=== PATIENT | female | born 1995 | race Caucasian/White ===

== ENCOUNTER 2022-12-06 08:04 | Emergency (ER) | payer OTHER, SELFPAY ==
[2022-12-06 08:16] VITALS: BP 116/73; PULSE 87; RESP 18; TEMP 36.5; O2SAT 99
--- NOTE | 2022-12-06 08:28 | ED.URI ---
HPI - URI/Sore Throat General Chief Complaint: Upper Respiratory Infection Stated Complaint: sorethroat Time Seen by Provider: 12/06/22 08:20 Source: patient Mode of arrival: ambulatory Limitations: no limitations History of Present Illness HPI Narrative: Patient presents today complaining of sore throat and fever up to 102 since last night. She currently rates her pain 7/10 and has tried no magv-[id number]-[id number] medication prior to arrival. 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 Related Data Allergies Allergy/AdvReac Type Severity Reaction Status Date / Time No Known Allergies Allergy Verified 12/06/22 08:09 Review of Systems Review of Systems: CONSTITUTIONAL: Denies body aches, chills, or sweats.+ fever EYES: Denies visual changes, redness, or discharge. ENT: Denies rhinorrhea, congestion, or otalgia.+ his sore throat CARDIOVASCULAR: Denies chest pain, palpitations, or edema. RESPIRATORY: Denies cough or dyspnea. GASTROINTESTINAL: Denies abdominal pain, nausea, vomiting, or diarrhea. GENITOURINARY: Denies dysuria or hematuria. SKIN: Denies rash, itching, or wounds. MUSCULOSKELETAL: Denies back pain, joint pain, or myalgia. NEUROLOGIC: Denies headache, numbness, tingling, or weakness. PSYCH: Denies depression or anxiety. PMFSH Past Medical History Medical History Allergies Surgical History Surgical History History of 2 sections 2015 2017 Family History Family History Father Family history of diabetes mellitus in first degree relative Mother Thyroid disorder Social History Social History Smoking status: Never smoker Alcohol intake: never Substance use: never Comments At time of signature, I have reviewed and agree with nursing past medical, surgical, social and family history unless otherwise noted. Please see nursing chart for further information. There is no relevant family history pertinent to the presenting complaint Exam Narrative: GENERAL: Well-appearing, well-nourished, and in no acute distress. HEAD: Normocephalic, atraumatic. EYES: EOMI. No redness or drainage. Conjunctivae normal. ENT: Mucous membranes pink and moist. Nares clear. No rhinorrhea. TMs normal bilaterally. Throat erythematous and edematous. Tonsils 3+ with white exudate. Uvula midline. NECK: Normal AROM. Supple. No lymphadenopathy. CHEST: No respiratory distress. Clear to auscultation. HEART: Regular rate and rhythm. No murmur appreciated. Normal peripheral pulses. EXTREMITIES: Normal range of motion. No edema. SKIN: Warm, dry, no rash. Capillary refill normal. Normal skin turgor. NEURO: No focal deficits. Alert and oriented x3. Gait steady. PSYCH: Normal affect. No signs of depression or anxiety. Course Course Level of Care: Express Care Visit Vital Signs Vital signs: Vital Signs Temperature 97.7 F 12/06/22 08:16 Pulse Rate 87 12/06/22 08:16 Respiratory Rate 18 12/06/22 08:16 Blood Pressure 116/73 12/06/22 08:16 Pulse Oximetry 99 12/06/22 08:16 Oxygen Delivery Room Air 12/06/22 08:16 Temperature 97.7 F 12/06/22 08:16 Pulse Rate 87 12/06/22 08:16 Respiratory Rate 18 12/06/22 08:16 Blood Pressure 116/73 12/06/22 08:16 Pulse Oximetry 99 12/06/22 08:16 Oxygen Delivery Room Air 12/06/22 08:16 Reviewed MDM - URI/Sore Throat MDM Narrative Medical decision making narrative: Rapid strep positive. Prescription for amoxicillin will be sent to pharmacy. Anticipatory guidance given. Differential Diagnosis Differential diagnosis: Likely upper respiratory infection, viral infection, pharyngitis and other (Strep throat) Lab Data Attestation: I reviewed the patient's lab results. Labs
== END 2022-12-06 08:33 | disposition home or self-care (01) ==
PROVIDERS: Emergency Provider Nurse Practitioner
DX: J02.0 Streptococcal pharyngitis (principal)
CPT/HCPCS: 87880; 99213; G0463

== ENCOUNTER 2023-06-08 08:05 | Emergency (ER) | payer OTHER, SELFPAY ==
[2023-06-08 08:17] VITALS: BP 115/71; PULSE 88; RESP 16; TEMP 36.7; O2SAT 99
--- NOTE | 2023-06-08 08:34 | ED.URI ---
HPI - URI/Sore Throat General Chief Complaint: Upper Respiratory Infection Stated Complaint: Cough,Sore Throat,Runny Nose Source: patient and family Mode of arrival: ambulatory Limitations: no limitations History of Present Illness HPI Narrative: 28-year-old female presents to [facility] with complaints of cough, runny nose, nasal congestion, body aches and sore throat for the past 2 days. Patient takes Claritin daily for seasonal allergies. Patient also has been taking [id number] cold and flu medication with little relief. Patient denies fever, nausea, vomiting diarrhea or chills. Patient reports that she was exposed to strep throat yesterday. MD elicited complaint: cough, sore throat, rhinorrhea and nasal congestion Onset (ago): day(s) (2) Able to tolerate fluids by mouth: Yes Exacerbating factors: nothing Relieving factors: nothing Treatments prior to arrival: cold medicine Related Data Home Medications Medication Instructions Recorded Confirmed loratadine 10 mg tablet 10 mg PO DAILY 06/08/23 06/08/23 Allergies Allergy/AdvReac Type Severity Reaction Status Date / Time No Known Allergies Allergy Verified 06/08/23 08:12 Review of Systems Constitutional: Constitutional: Denies chills, Denies fatigue, Denies fever(s) and Denies weakness ENT: Denies dizziness, Denies epistaxis, Reports nasal congestion and Reports sore throat Gastrointestinal: Gastrointestinal: Denies abdominal pain, Denies diarrhea, Denies nausea and Denies vomiting Integumentary/Breasts: Skin/Breast: Denies rash Neurologic: Denies dizziness, Denies syncope and Denies headache(s) Allergic/Immunologic: Allergic/Immunologic: Denies lip swelling, Denies throat swelling, Denies tongue swelling and Denies wheezing PMFSH Past Medical History Medical History Allergies Surgical History Surgical History History of 2 sections 2015 2017 Family History Family History Father Family history of diabetes mellitus in first degree relative Mother Thyroid disorder Social History Social History Smoking status: Never smoker Alcohol intake: never Substance use: never Comments At time of signature, I agree with nursing past medical, surgical, social and family history. There is no relevant family history pertinent to the presenting complaint. Exam Const: General: healthy appearing and no acute distress Nutritional Appearance: well nourished Orientation/consciousness: patient oriented x3 Limitations: no limitations HENMT: Head: normal to inspection Ears: external ears normal, TM's normal bilaterally and EAC's normal Face and sinus: normal facial exam and sinuses nontender Mouth: Yes Normal oral and palatal mucosa present and Yes moist mucous membranes Teeth and gingiva: dentition normal Throat: posterior oropharynx normal and uvula midline Eyes: Conjunctivae: conjunctivae normal Neck: Neck: normal visual inspection Resp: Effort & Inspection: normal respiratory effort, not labored and not tachypneic Auscultation: clear to auscultation bilaterally, no crackles, no rales, no rhonchi and no wheezes Cardio: Rate: regular rate Rhythm: regular rhythm Heart sounds: no murmurs Skin: General skin exam: normal color Rashes: no rashes Wounds: no wounds Neuro: General: patient oriented x3 Speech: normal speech Gait exam (Neuro): Normal gait present Psych: Affect: normal affect Attitude: cooperative Course Course Level of Care: Express Care Visit Vital Signs Vital signs: Vital Signs Temperature 36.7 C 06/08/23 08:17 Pulse Rate 88 06/08/23 08:17 Respiratory Rate 16 06/08/23 08:17 Blood Pressure 115/71 06/08/23 08:17 Pulse Oximetry 99 06/08/23 08:17 Oxygen Delivery Room Air
== END 2023-06-08 08:40 | disposition home or self-care (01) ==
PROVIDERS: Emergency Provider Nurse Practitioner Family
DX: B34.9 Viral infection, unspecified (principal)
CPT/HCPCS: 87081; 87880; 99213; G0463

== ENCOUNTER 2023-11-28 16:03 | Emergency (ER) | payer OTHER, SELFPAY ==
[2023-11-28 16:11] VITALS: BP 124/79; PULSE 84; RESP 18; TEMP 36.8; O2SAT 99
--- NOTE | 2023-11-28 16:12 | ED.URI ---
HPI - URI/Sore Throat General Chief Complaint: Upper Respiratory Infection Stated Complaint: cough,congestion Time Seen by Provider: 11/28/23 16:12 Source: patient, RN notes reviewed and old records reviewed Mode of arrival: ambulatory Limitations: no limitations History of Present Illness HPI Narrative: 28-year-old female presents to the [facility] with complaints of 1 week of cough, congestion, runny nose. States she has tried [id number] products but a meter stomach upset so she stopped Denies fevers, chest pain, abdominal pain Related Data Allergies Allergy/AdvReac Type Severity Reaction Status Date / Time No Known Allergies Allergy Verified 11/28/23 16:13 Review of Systems Review of Systems: All systems reviewed & are unremarkable except as noted in HPI and below Constitutional: Constitutional: Reports no additional constitutional complaints Eyes: Eyes: Reports no additional eye complaints ENT: Reports as per HPI Cardiovascular: Cardiovascular: Reports no additional cardiovascular complaints, Denies chest pain and Denies dyspnea Respiratory: Respiratory: Reports as per HPI, Denies chest congestion, Reports cough and Denies dyspnea Gastrointestinal: Gastrointestinal: Reports no additional gastrointestinal complaints, Denies abdominal pain, Denies nausea and Denies vomiting Musculoskeletal: Musculoskeletal: Reports no additional musculoskeletal complaints Integumentary/Breasts: Skin/Breast: Reports system reviewed and no additional complaints, except as docu Neurologic: Reports system reviewed and no additional complaints, except as documented Psychiatric: Psychiatric: Reports no additional psychiatric complaints Allergic/Immunologic: Allergic/Immunologic: Reports no additional allergic/immunologic complaints [facility] Past Medical History Medical History Allergies Surgical History Surgical History History of 2 sections 2015 2017 Family History Family History Father Family history of diabetes mellitus in first degree relative Mother Thyroid disorder Social History Social History Smoking status: Never smoker Alcohol intake: never Substance use: never Comments At the time of my signature, I reviewed and agree with the nursing past medical, surgical, social, and family history. There is no relevant family history pertinent to the patient complaint. Exam Const: General: cooperative, healthy appearing, comfortable, no acute distress, well developed, alert and well nourished Nutritional Appearance: well nourished Orientation/consciousness: patient oriented x3 Limitations: no limitations HENMT: Head: normal to inspection Ears: hearing grossly normal bilaterally, external ears normal, TM's normal bilaterally, EAC's normal, mastoids normal and no periauricular adenopathy Face/Nose/Sinus: Normal external nose present, Normal nares present, Normal nasal mucous membranes and turbinates present, normal facial exam and face symmetric Face and sinus: normal facial exam and face symmetric Mouth: Yes Normal oral and palatal mucosa present, Yes lip normal and Yes moist mucous membranes Throat: posterior oropharynx normal, uvula midline and postnasal drainage (Thick white large amount) Eyes: General: appearance normal, both eyes and all related structures Alignment and Position: alignment normal Periorbital: periorbital findings normal Pupils: Equal, round and reactive pupils present EOM: EOMs intact bilaterally Neck: Neck: normal visual inspection, full ROM, no lymphadenopathy and no meningeal signs Chest: Chest palpation & inspection: normal inspection of the chest Resp: Effort & Inspection: normal respiratory effort and able to speak in complete sentences Auscultation:
[2023-11-28 16:14] VITALS: BP 124/79; PULSE 84; RESP 18; TEMP 36.8; O2SAT 99
== END 2023-11-28 16:23 | disposition home or self-care (01) ==
PROVIDERS: Emergency Provider Nurse Practitioner
DX: J40 Bronchitis, not specified as acute or chronic (principal); R09.82 Postnasal drip
CPT/HCPCS: 99213; G0463

== ENCOUNTER 2023-12-08 15:42 | Emergency (ER) | payer OTHER, SELFPAY ==
[2023-12-08 16:28] VITALS: BP 122/80; PULSE 81; RESP 18; TEMP 36.4; O2SAT 100
--- NOTE | 2023-12-08 16:47 | ED.GENADULT ---
HPI - General Adult General Chief complaint: Upper Respiratory Infection Stated complaint: cough,bilateral ear pain Time Seen by Provider: 12/08/23 16:50 Source: patient, RN notes reviewed and old records reviewed Mode of arrival: ambulatory Limitations: no limitations History of Present Illness HPI narrative: 28-year-old female presents to the [facility] with complaints of cough, bilateral ear pain Patient states her cough never went away after she was seen on the 28 of November. Symptoms now going on approximately 2 weeks Ear pain started yesterday States the last time she used her inhaler was 2 days a Reports that she did feel dish the full round of steroids but it did not make her better Has not taken any [id number] products to help her symptoms Has not followed up with primary care provider Onset (ago): week(s) (2) Related Data Allergies Allergy/AdvReac Type Severity Reaction Status Date / Time No Known Allergies Allergy Verified 12/08/23 16:30 Review of Systems Review of Systems: All systems reviewed & are unremarkable except as noted in HPI and below Constitutional: Constitutional: Reports no additional constitutional complaints Eyes: Eyes: Reports no additional eye complaints ENT: Reports as per HPI and Reports otalgia Cardiovascular: Cardiovascular: Reports no additional cardiovascular complaints, Denies chest pain and Denies dyspnea Respiratory: Respiratory: Reports as per HPI, Denies chest congestion, Denies cough and Denies dyspnea Gastrointestinal: Gastrointestinal: Reports no additional gastrointestinal complaints, Denies abdominal pain, Denies nausea and Denies vomiting Musculoskeletal: Musculoskeletal: Reports no additional musculoskeletal complaints Integumentary/Breasts: Skin/Breast: Reports system reviewed and no additional complaints, except as docu Neurologic: Reports system reviewed and no additional complaints, except as documented Psychiatric: Psychiatric: Reports no additional psychiatric complaints Allergic/Immunologic: Allergic/Immunologic: Reports no additional allergic/immunologic complaints [facility] Past Medical History Medical History Allergies Surgical History Surgical History History of 2 sections 2015 2017 Family History Family History Father Family history of diabetes mellitus in first degree relative Mother Thyroid disorder Social History Social History Smoking status: Never smoker Alcohol intake: never Substance use: never Comments At the time of my signature, I reviewed and agree with the nursing past medical, surgical, social, and family history. There is no relevant family history pertinent to the patient complaint. Exam Const: General: cooperative, healthy appearing, comfortable, no acute distress, well developed, alert and well nourished Nutritional Appearance: well nourished and obese Orientation/consciousness: patient oriented x3 Limitations: no limitations HENMT: Head: normal to inspection Ears: hearing grossly normal bilaterally, external ears normal, EAC's normal and TM abnormal wth effusion serous bilateral; not erythematous and with no loss of landmarks Face/Nose/Sinus: Normal external nose present, Normal nares present, Normal nasal mucous membranes and turbinates present, normal facial exam and face symmetric Face and sinus: normal facial exam and face symmetric Mouth: Yes Normal oral and palatal mucosa present, Yes lip normal and Yes moist mucous membranes Throat: posterior oropharynx normal, tonsils normal, uvula midline and postnasal drainage Eyes: General: appearance normal, both eyes and all related structures Alignment and Position: alignment normal Periorbital: periorbital findings normal Pupils:
== END 2023-12-08 17:05 | disposition home or self-care (01) ==
PROVIDERS: Emergency Provider Nurse Practitioner
DX: H65.03 Acute serous otitis media, bilateral (principal); J20.9 Acute bronchitis, unspecified
CPT/HCPCS: 99213; G0463

== ENCOUNTER 2024-08-08 08:03 | Emergency (ER) | payer OTHER, SELFPAY ==
[2024-08-08 08:29] VITALS: BP 106/69; PULSE 80; RESP 18; TEMP 36.4; O2SAT 99
[2024-08-08 08:30] VITALS: BP 106/69; PULSE 80; RESP 18; TEMP 36.4; O2SAT 99
--- NOTE | 2024-08-08 08:40 | ED.URI ---
HPI - URI/Sore Throat General Chief Complaint: Upper Respiratory Infection Stated Complaint: cough / Ear Pain Time Seen by Provider: 08/08/24 08:36 Source: patient and RN notes reviewed Mode of arrival: ambulatory Limitations: no limitations History of Present Illness HPI Narrative: Patient presents today with a 4 day history of sore throat, cough, congestion, bilateral ear pain. Denies fever, shortness of breath, or any additional symptoms. She currently rates her pain 6/10 and has tried Mucinex without relief. No history of asthma or COPD. She is a nonsmoker. Related Data Home Medications Medication Instructions Recorded Confirmed No Home Medications 08/08/24 08/08/24 Allergies Allergy/AdvReac Type Severity Reaction Status Date / Time No Known Allergies Allergy Verified 08/08/24 08:30 Review of Systems Review of Systems: CONSTITUTIONAL: Denies body aches, fever, chills, or sweats. EYES: Denies visual changes, redness, or discharge. ENT: Denies rhinorrhea. + congestion sore pain, bilateral ear pain CARDIOVASCULAR: Denies chest pain, palpitations, or edema. RESPIRATORY: Denies dyspnea.+ cough GASTROINTESTINAL: Denies abdominal pain, nausea, vomiting, or diarrhea. GENITOURINARY: Denies dysuria or hematuria. SKIN: Denies rash, itching, or wounds. MUSCULOSKELETAL: Denies back pain, joint pain, or myalgia. NEUROLOGIC: Denies headache, numbness, tingling, or weakness. PSYCH: Denies depression or anxiety. [facility] Past Medical History Medical History Allergies Surgical History Surgical History History of 2 sections 2016 2017 Family History Family History Father Family history of diabetes mellitus in first degree relative Mother Thyroid disorder Social History Social History Smoking status: Never smoker Alcohol intake: never Substance use: never Comments At time of signature, I have reviewed and agree with nursing past medical, surgical, social and family history unless otherwise noted. Please see nursing chart for further information. There is no relevant family history pertinent to the presenting complaint Exam Narrative: GENERAL: Well-appearing, well-nourished, and in no acute distress. HEAD: Normocephalic, atraumatic. EYES: EOMI. No redness or drainage. Conjunctivae normal. ENT: Mucous membranes pink and moist. Nares congested. No rhinorrhea. TMs normal bilaterally. Throat mildly erythematous without edema or exudate. Uvula midline. NECK: Normal AROM. Supple. No lymphadenopathy. CHEST: No respiratory distress. Clear to auscultation. HEART: Regular rate and rhythm. No murmur appreciated. EXTREMITIES: Normal range of motion. No edema. SKIN: Warm, dry, no rash. Capillary refill normal. Normal skin turgor. NEURO: No focal deficits. Alert and oriented x3. Gait steady. PSYCH: Normal affect. No signs of depression or anxiety. Course Course Level of Care: Express Care Visit Vital Signs Vital signs: Vital Signs Temperature 97.5 F L 08/08/24 08:29 Pulse Rate 80 08/08/24 08:29 Respiratory Rate 18 08/08/24 08:29 Blood Pressure 106/69 08/08/24 08:29 Pulse Oximetry 99 08/08/24 08:29 Oxygen Delivery Room Air 08/08/24 08:29 Temperature 97.5 F L 08/08/24 08:30 Pulse Rate 80 08/08/24 08:30 Respiratory Rate 18 08/08/24 08:30 Blood Pressure 106/69 08/08/24 08:30 Pulse Oximetry 99 08/08/24 08:30 Oxygen Delivery Room Air 08/08/24 08:30 Reviewed MDM - URI/Sore Throat MDM Narrative Medical decision making narrative: Influenza, COVID, and strep throat negative. Strep culture pending. Symptoms likely viral in etiology. Discussed [id number] medication use and duration of illness. Patient declines prescription cough medicine. Anticipatory guidance given. ED precautions given. Differential Diagnosis Differential diagnosis: Likely upper respiratory infection, otitis media, viral infection, bronchitis, influenza, pharyngitis and other (COVID-19, strep throat) Lab Data Attestation: I reviewed the patient's lab results. Labs: Lab Results 08/08/24 Range/Units 08:54 POC Influenza A Ag Negative (Negative) POC Influenza B Ag Negative (Negative) POC SARS CoV-2 Ag Negative (Negative) POC Grp A Strep Screen Negative (Negative) Critical Care Time Critical Care Time Critical Care Time: No Discharge Plan Discharge Clinical Impression: Upper respiratory infection Qualifiers: URI type: unspecified URI Qualified Code(s): J06.9 - Acute upper respiratory infection, unspecified Patient Disposition: Home, Self-Care Condition: Stable Instructions: Upper Respiratory Infection (DC) Additional Instructions: Your COVID-19, influenza, and rapid strep swabs were negative today at [facility]. You will be notified in a few days if the culture comes back positive for strep, and appropriate antibiotics will be called in for you at that time. Your symptoms are likely due to a viral illness, which is not treated with antibiotics. Viral symptoms can be present for up to 7-10 days. Take Tylenol or ibuprofen for fever or pain. Continue Mucinex during the day to help break up any chest congestion. Take a cough suppressant at night such as Delsym or Robitussin DM if needed. Rest and stay hydrated. Follow up with your PCP in 7 days if symptoms are not improving. Go to the ER immediately if you have any difficulty breathing or swallowing. Prescriptions: No Action No Home Medications Follow-up/Referrals: PHYSICIAN,PARKING ENFORCEMENT SPECIALIST [Primary Care Provider] - Time of Disposition: 08:58
[2024-08-08 08:56] LABS: EDCOVIDSCREEN Negative (Negative); EDINFLUASCREEN Negative (Negative); EDINFLUBSCREEN Negative (Negative); EDSTREPNEGPOS1 Negative (Negative)
== END 2024-08-08 09:02 | disposition home or self-care (01) ==
PROVIDERS: Emergency Provider Nurse Practitioner
DX: J06.9 Acute upper respiratory infection, unspecified (principal); Z20.822 Contact with and (suspected) exposure to COVID-19
CPT/HCPCS: 87081; 87426; 87804; 87880; 99213; G0463

== ENCOUNTER 2024-08-13 11:00 | Emergency (ER) | payer OTHER, SELFPAY ==
--- NOTE | ~2024-08-13 | XR_ITS ---
XR chest 2V 08/13/2024 11:17 Indication: Cough and fever Procedure: 2 view chest Comparison: No prior studies for comparison. Findings: Heart size normal. Right lower lobe pneumonia. No pleural effusion, edema or pneumothorax. No acute osseous abnormality. Impression: 1: Right lower lobe pneumonia. Reviewed, dictated and finalized at location B. Impression: 1: Right lower lobe pneumonia.
--- NOTE | 2024-08-13 11:03 | ED.URI ---
HPI - URI/Sore Throat General Chief Complaint: Upper Respiratory Infection Stated Complaint: cough / fever / chest pain Time Seen by Provider: 08/13/24 11:08 Source: patient, RN notes reviewed and old records reviewed Mode of arrival: ambulatory Limitations: no limitations History of Present Illness HPI Narrative: 29-year-old female return [facility] the [facility] after being evaluated on Friday, 5 days ago. Diagnosed with a viral infection. At that time she was flu, strep and COVID negative Patient reports over the last couple of days or symptoms go hours. Related Data Home Medications Medication Instructions Recorded Confirmed norethindrone acetate 1 mg-ethinyl 1 tablet PO DAILY 08/13/24 08/13/24 estradiol 20 mcg tablet Allergies Allergy/AdvReac Type Severity Reaction Status Date / Time No Known Allergies Allergy Verified 08/13/24 11:05 Review of Systems Review of Systems: All systems reviewed & are unremarkable except as noted in HPI and below Constitutional: Constitutional: Reports as per HPI and Reports fever(s) Eyes: Eyes: Reports no additional eye complaints ENT: Reports as per HPI Cardiovascular: Cardiovascular: Reports no additional cardiovascular complaints, Denies chest pain and Denies dyspnea Respiratory: Respiratory: Reports as per HPI, Denies chest congestion, Reports cough and Reports dyspnea Gastrointestinal: Gastrointestinal: Reports no additional gastrointestinal complaints, Denies abdominal pain, Denies nausea and Denies vomiting Musculoskeletal: Musculoskeletal: Reports no additional musculoskeletal complaints Integumentary/Breasts: Skin/Breast: Reports system reviewed and no additional complaints, except as docu Neurologic: Reports system reviewed and no additional complaints, except as documented Psychiatric: Psychiatric: Reports no additional psychiatric complaints Allergic/Immunologic: Allergic/Immunologic: Reports no additional allergic/immunologic complaints [facility] Past Medical History Medical History Allergies Surgical History Surgical History History of 2 sections 2015 2017 Family History Family History Father Family history of diabetes mellitus in first degree relative Mother Thyroid disorder Social History Social History Smoking status: Never smoker Alcohol intake: never Substance use: never Comments At the time of my signature, I reviewed and agree with the nursing past medical, surgical, social, and family history. There is no relevant family history pertinent to the patient complaint. Exam Const: General: cooperative, healthy appearing, comfortable, no acute distress, well developed, alert and well nourished Nutritional Appearance: well nourished Orientation/consciousness: patient oriented x3 Limitations: no limitations HENMT: Head: normal to inspection Ears: hearing grossly normal bilaterally, external ears normal, TM's normal bilaterally, EAC's normal, mastoids normal and no periauricular adenopathy Face/Nose/Sinus: Normal external nose present, normal facial exam and face symmetric Face and sinus: normal facial exam and face symmetric Mouth: Yes Normal oral and palatal mucosa present, Yes lip normal and Yes tongue normal Throat: posterior oropharynx normal, tonsils normal, uvula midline and no uvular edema Eyes: General: appearance normal, both eyes and all related structures Alignment and Position: alignment normal Periorbital: periorbital findings normal Neck: Neck: normal visual inspection, full ROM, no lymphadenopathy and no meningeal signs Chest: Chest palpation & inspection: normal inspection of the chest Resp: Effort & Inspection: normal respiratory effort and able to speak in complete sentences Auscultati
[2024-08-13 11:08] VITALS: BP 123/76; PULSE 86; RESP 16; TEMP 37.1; O2SAT 96
== END 2024-08-13 11:29 | disposition home or self-care (01) ==
PROVIDERS: Emergency Provider Nurse Practitioner
DX: J18.9 Pneumonia, unspecified organism (principal)
CPT/HCPCS: 71046; 99213; G0463

== ENCOUNTER 2024-10-05 15:15 | Emergency (ER) | payer OTHER, SELFPAY ==
[2024-10-05 15:30] VITALS: BP 125/70; PULSE 93; RESP 20; TEMP 36.7; O2SAT 99
--- NOTE | 2024-10-05 15:38 | ED_ITS ---
HPI - URI/Sore Throat General Chief Complaint: Upper Respiratory Infection Stated Complaint: cough / congestion/ sore throat Time Seen by Provider: 10/05/24 15:41 Source: patient and RN notes reviewed Mode of arrival: ambulatory Limitations: no limitations History of Present Illness HPI Narrative: 29-year-old female presents concern for 3 day history of cough, nasal congestion, sore throat and postnasal drainage. Reports she start him a low- grade temperature today. She has not taken any medications for her symptoms. 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 EYES: Denies visual changes, redness, or discharge. ENT: Reports rhinorrhea, congestion, sinus pain, otalgia and sore throat. CARDIOVASCULAR: Denies chest pain, palpitations, or edema. RESPIRATORY: Reports cough. Denies dyspnea. GASTROINTESTINAL: Denies abdominal pain, nausea, vomiting, diarrhea SKIN: Denies rash or itching. MUSCULOSKELETAL: Denies myalgia. NEUROLOGIC: Denies headache. All systems reviewed & are unremarkable except as noted in HPI and below PMFSH Past Medical History Medical History Allergies Surgical History Surgical History History of 2 sections 2015 2017 Family History Family History Father Family history of diabetes mellitus in first degree relative Mother Thyroid disorder Social History Social History Smoking status: Never smoker Alcohol intake: never Substance use: never Comments At time of signature, agree with nursing past medical, surgical, social and family history. There is no relevant family history pertinent to the presenting complaint Exam Narrative: GENERAL: Well-appearing, well-nourished, and in no acute distress. HEAD: Normocephalic EYES: PERRLA, conjunctivae clear ENT: Nares clear, turbinates edematous and erythematous, clear discharge. Mucous membranes moist. TM pearly lozano with dull light reflex bilaterally; no tragal tenderness. Oropharynx not erythematous without lesions. Tonsils not enlarged and without exudate, no drooling, no hoarseness, no trismus, uvula midline. NECK: Supple. No lymphadenopathy CHEST: Clear to auscultation, breath sounds equal. No wheezing, rhonchi, rales, or stridor. No respiratory distress, speaks in full sentences. HEART: Regular rate and rhythm. No murmur heard. SKIN: Warm, dry, no rash. NEURO: Alert and oriented x3. PSYCH: Normal mood and affect Course Course Emergency Course: Patient is aware of diagnosis, understands and agrees to treatment plan. Anti cipatory guidance given. Patient agrees to follow-up as directed and is aware of reasons to seek care at the emergency department. Portions of this record may have been created with voice recognition software Level of Care: Express Care Visit Vital Signs Vital signs: Vital Signs Temperature 98.0 F 10/05/24 15:30 Pulse Rate 93 10/05/24 15:30 Respiratory Rate 20 10/05/24 15:30 Blood Pressure 125/70 10/05/24 15:30 Pulse Oximetry 99 10/05/24 15:30 Oxygen Delivery Room Air 10/05/24 15:30 Temperature 98.0 F 10/05/24 15:30 Pulse Rate 93 10/05/24 15:30 Respiratory Rate 20 10/05/24 15:30 Blood Pressure 125/70 10/05/24 15:30 Pulse Oximetry 99 10/05/24 15:30 Oxygen Delivery Room Air 10/05/24 15:30 Reviewed. MDM - URI/Sore Throat MDM Narrative Medical decision making narrative: Differential diagnosis considered: Jefferson virus, strep pharyngitis, allergic rhinitis, upper respiratory tract infection, sinusitis, rhinosinusitis, nasopharyngitis. viral pharyngitis, otitis media, otitis externa, pneumonia, bronchitis, viral cough syndrome, viral syndrome, and influenza. Exam findings show no acute concerns or changes; patient is non-toxic appearing and is in no distress. Patient is appropriate for outpatient treatment and follow-up. Lab Data Attestation: I reviewed the patient's lab results. Labs: Lab Results 10/05/24 10/05/24 10/05/24 Range/Units 15:40 15:43 15:44 POC Influenza A Ag Pending POC Influenza B Ag Negative (Negative) POC SARS CoV-2 Ag Pending POC Grp A Strep Screen Negative (Negative) Critical Care Time Critical Care Time Critical Care Time: No Discharge Plan Discharge Clinical Impression: Upper respiratory infection Patient Disposition: Home, Self-Care Condition: Stable Instructions: Upper Respiratory Infection (ED) Additional Instructions: Your rapid COVID and flu tests are negative Your rapid strep swab was negative today at [facility]. A throat culture will be sent to the laboratory for further testing. If the test is positive, you will receive a phone call within 48 hours and an appropriate antibiotic will be initiated at that time. Your symptoms are likely due to a viral illness, which is not treated with antibiotics. Viral symptoms can be present for up to a few weeks. -Alternate Tylenol and Motrin per package directions for fever or pain. -Antihistamine medication such as Benadryl at night and Zyrtec during the day can help improve symptoms. -Eat and drink things that are easy to swallow, like tea or soup, or popsicles to suck on. -Oral rinses such as: Salt water gargles and/or may use topical anesthetic (eg. Chloraseptic spray) or lozenges to relieve dryness or throat pain). -Frequent hand washing or hand credit relationship manager is one of the best ways to prevent spread of infection. -Follow up with primary care provider in 2-3 days if condition is not improving; or seek ER visit if you have trouble breathing, cannot drink enough fluids, have muffled voice, difficulty opening your mouth, or severe swelling. Patient Language: Sami Prescriptions: New pseudoephedrine HCl [12 Hour Decongestant] 120 mg tablet extended release 120 mg PO Q12H PRN (Reason: nasal congestion) Qty: 20 0RF No Action norethindrone ac-eth estradiol 1-20 mg-mcg tablet 1 tablet PO DAILY Follow-up/Referrals: PHYSICIAN,SLURRY TANK OPERATOR [Primary Care Provider] - Stand Alone Forms: Work/School Release IP Time of Disposition: 15:49
[2024-10-05 15:42] LABS: EDSTREPNEGPOS1 Negative (Negative)
[2024-10-05 15:49] LABS: EDINFLUBSCREEN Negative (Negative)
[2024-10-06 07:32] LABS: EDCOVIDSCREEN Negative (Negative)
[2024-10-11 11:07] LABS: EDINFLUASCREEN Negative (Negative)
== END 2024-10-05 15:51 | disposition home or self-care (01) ==
PROVIDERS: Emergency Provider Nurse Practitioner
DX: J06.9 Acute upper respiratory infection, unspecified (principal); Z20.822 Contact with and (suspected) exposure to COVID-19
CPT/HCPCS: 87081; 87426; 87804; 87880; 99213; G0463

== ENCOUNTER 2025-01-09 08:03 | Emergency (ER) | payer OTHER, SELFPAY ==
[2025-01-09 08:17] VITALS: BP 111/63; PULSE 76; RESP 18; TEMP 36.8; O2SAT 99
--- NOTE | 2025-01-09 08:26 | ED_ITS ---
HPI - URI/Sore Throat General Chief Complaint: Upper Respiratory Infection Stated Complaint: cough and congestion Time Seen by Provider: 01/09/25 08:20 Source: patient and RN notes reviewed Mode of arrival: ambulatory Limitations: no limitations History of Present Illness HPI Narrative: Patient presents today with a 6 day history of cough and nasal congestion. Denies any additional symptoms to include fever, shortness of breath. Denies any known sick contacts. She has tried no [id number] treatment prior to arrival. She does not smoke or vape. Related Data Home Medications ?Medication ?Instructions ?Recorded ?Confirmed ?Last Taken ?Type norethindrone acetate 1 mg-ethinyl 1 tablet PO DAILY 08/13/24 08/13/24 Unknown History estradiol 20 mcg tablet Allergies Allergy/AdvReac Type Severity Reaction Status Date / Time No Known Allergies Allergy Verified 01/09/25 08:14 Review of Systems Review of Systems: CONSTITUTIONAL: Denies body aches, fever, chills, or sweats. EYES: Denies visual changes, redness, or discharge. ENT: Denies rhinorrhea, sore throat, or otalgia.+ Nasal congestion CARDIOVASCULAR: Denies chest pain, palpitations, or edema. RESPIRATORY: Denies dyspnea.+ cough GASTROINTESTINAL: Denies abdominal pain, nausea, vomiting, or diarrhea. GENITOURINARY: Denies dysuria or hematuria. SKIN: Denies rash, itching, or wounds. MUSCULOSKELETAL: Denies back pain, joint pain, or myalgia. NEUROLOGIC: Denies headache, numbness, tingling, or weakness. PSYCH: Denies depression or anxiety. [facility] Past Medical History Medical History Allergies Surgical History Surgical History History of 2 sections 2016 2017 Family History Family History Father Family history of diabetes mellitus in first degree relative Mother Thyroid disorder Social History Social History Smoking status: Never smoker Alcohol intake: never Substance use: never Comments At time of signature, I have reviewed and agree with nursing past medical, surgical, social and family history unless otherwise noted. Please see nursing chart for further information. There is no relevant family history pertinent to the presenting complaint Exam Narrative: GENERAL: Well-appearing, well-nourished, and in no acute distress. HEAD: Normocephalic, atraumatic. EYES: EOMI. No redness or drainage. Conjunctivae normal. ENT: Mucous membranes pink and moist. Nares mildly congested. No rhinorrhea. TMs normal bilaterally. Throat normal. Uvula midline. NECK: Normal AROM. Supple. No lymphadenopathy. CHEST: No respiratory distress. Clear to auscultation. HEART: Regular rate and rhythm. No murmur appreciated. EXTREMITIES: Normal range of motion. No edema. SKIN: Warm, dry, no rash. Capillary refill normal. Normal skin turgor. NEURO: No focal deficits. Alert and oriented x3. Gait steady. PSYCH: Normal affect. No signs of depression or anxiety. Course Course Level of Care: Express Care Visit Vital Signs Vital signs: Vital Signs Temperature 98.3 F 01/09/25 08:17 Pulse Rate 76 01/09/25 08:17 Respiratory Rate 18 01/09/25 08:17 Blood Pressure 111/63 01/09/25 08:17 Pulse Oximetry 99 01/09/25 08:17 Oxygen Delivery Room Air 01/09/25 08:17 Temperature 98.3 F 01/09/25 08:17 Pulse Rate 76 01/09/25 08:17 Respiratory Rate 18 01/09/25 08:17 Blood Pressure 111/63 01/09/25 08:17 Pulse Oximetry 99 01/09/25 08:17 Oxygen Delivery Room Air 01/09/25 08:17 reviewed MDM - URI/Sore Throat MDM Narrative Medical decision making narrative: Exam is grossly normal.Symptoms likely viral in etiology. Discussed [id number] medication use and duration of illness. Prescription for benzonatate sent to pharmacy. Anticipatory guidance given. Differential Diagnosis Differential diagnosis: Likely upper respiratory infection, otitis media, sinusitis, viral infection, bronchitis and other ( pneumonia) Critical Care Time Critical Care Time Critical Care Time: No Discharge Plan Discharge Clinical Impression: Upper respiratory infection Qualifiers: URI type: unspecified URI Qualified Code(s): J06.9 - Acute upper respiratory infection, unspecified Patient Disposition: Home, Self-Care Condition: Stable Instructions: Upper Respiratory Infection (DC) Additional Instructions: Your symptoms are likely due to a viral illness, which is not treated with antibiotics. Virus symptoms can last for up to 7-10days. Take Tylenol or ibuprofen for pain or fever. Rest and stay hydrated. Follow up with your PCP in 3-4 days if symptoms are not improving. Go to the ER immediately if you develop shortness of breath, difficulty swallowing, or any other concerning symptoms. Patient Language: Luxembourger Prescriptions: New benzonatate 200 mg capsule 200 mg PO TID PRN (Reason: cough) Qty: 20 0RF No Action norethindrone ac-eth estradiol 1-20 mg-mcg tablet 1 tablet PO DAILY Follow-up/Referrals: PHYSICIAN,WHIP OPERATOR [Primary Care Provider] - Stand Alone Forms: Work/School Release IP Time of Disposition: 08:30
== END 2025-01-09 08:33 | disposition home or self-care (01) ==
PROVIDERS: Emergency Provider Nurse Practitioner; Referring Provider Emergency Medicine
DX: J06.9 Acute upper respiratory infection, unspecified (principal)
CPT/HCPCS: 99213; G0463

== ENCOUNTER 2025-03-01 09:26 | Emergency (ER) | payer OTHER, SELFPAY ==
--- NOTE | 2025-03-01 09:28 | ED.URI ---
HPI - URI/Sore Throat General Chief Complaint: Upper Respiratory Infection Stated Complaint: Cough / Congestion Time Seen by Provider: 03/01/25 09:31 Source: patient, RN notes reviewed and old records reviewed Mode of arrival: ambulatory Limitations: no limitations History of Present Illness HPI Narrative: 30-year-old female presents to the [facility] with complaints of nonproductive cough, congestion since Friday, 2 days. Has taken a dose of DayQuil. Denies any fevers, chest pain. Denies any other symptoms, body aches. 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 Requesting a work note Onset (ago): day(s) (2) Treatments prior to arrival: cold medicine Related Data Home Medications ?Medication ?Instructions ?Recorded ?Confirmed ?Last Taken ?Type norethindrone acetate 1 mg-ethinyl 1 tablet PO DAILY 08/13/24 03/01/25 Unknown History estradiol 20 mcg tablet Allergies Allergy/AdvReac Type Severity Reaction Status Date / Time No Known Allergies Allergy Verified 03/01/25 09:27 Review of Systems Review of Systems: All systems reviewed & are unremarkable except as noted in HPI and below Constitutional: Constitutional: Reports no additional constitutional complaints ENT: Reports as per HPI and Reports nasal congestion Cardiovascular: Cardiovascular: Reports no additional cardiovascular complaints, Denies chest pain and Denies dyspnea Respiratory: Respiratory: Reports as per HPI, Denies chest congestion, Reports cough and Denies dyspnea Musculoskeletal: Musculoskeletal: Reports no additional musculoskeletal complaints Integumentary/Breasts: Skin/Breast: Reports system reviewed and no additional complaints, except as docu PMFSH Past Medical History Medical History Allergies Surgical History Surgical History History of 2 sections 2015 2017 Family History Family History Father Family history of diabetes mellitus in first degree relative Mother Thyroid disorder Social History Social History Smoking status: Never smoker Alcohol intake: never Substance use: never Comments At the time of my signature, I reviewed and agree with the nursing past medical, surgical, social, and family history. There is no relevant family history pertinent to the patient complaint. Exam Const: General: cooperative, healthy appearing, comfortable, no acute distress, well developed, alert and well nourished Nutritional Appearance: well nourished Orientation/consciousness: patient oriented x3 Limitations: no limitations HENMT: Head: normal to inspection Ears: hearing grossly normal bilaterally, external ears normal, TM's normal bilaterally, EAC's normal, mastoids normal and no periauricular adenopathy Mouth: Yes Normal oral and palatal mucosa present, Yes lip normal, Yes tongue normal and Yes moist mucous membranes Throat: posterior oropharynx normal, tonsils normal, uvula midline and no uvular edema Eyes: General: appearance normal, both eyes and all related structures Alignment and Position: alignment normal Neck: Neck: normal visual inspection, full ROM, no lymphadenopathy and no meningeal signs Chest: Chest palpation & inspection: normal inspection of the chest Resp: Effort & Inspection: normal respiratory effort and able to speak in complete sentences Auscultation: clear to auscultation bilaterally, no crackles, no rales, no rhonchi and no wheezes Cardio: Rate: regular rate Skin: General skin exam: normal color and no rashes or lesions noted Neuro: General: patient oriented x3, gait normal, moves all extremities and no meningeal signs Cognition (Neuro): normal cognition Speech: normal speech Gait exam (Neuro): Normal gait present Extrem: General: normal to inspection, full ROM, capillary refill normal and normal gait Psych: Appearance: grossly normal and well kempt Mental Status: mental status grossly normal Speech and movement: Normal speech and movement present and Clear speech present Affect: normal affect Attitude: cooperative Course Course Level of Care: Express Care Visit Vital Signs Vital signs: Vital Signs Temperature 98.1 F 03/01/25 09:32 Pulse Rate 84 03/01/25 09:32 Respiratory Rate 18 03/01/25 09:32 Blood Pressure 114/75 03/01/25 09:32 Pulse Oximetry 100 03/01/25 09:32 Oxygen Delivery Room Air 03/01/25 09:32 Temperature 98.1 F 03/01/25 09:32 Pulse Rate 84 03/01/25 09:32 Respiratory Rate 18 03/01/25 09:32 Blood Pressure 114/75 03/01/25 09:32 Pulse Oximetry 100 03/01/25 09:32 Oxygen Delivery Room Air 03/01/25 09:32 Reviewed MDM - URI/Sore Throat MDM Narrative Medical decision making narrative: Patient sitting in exam room. Patient is nontoxic, vitals stable. Patient presents with 2 day history of cough and congestion. Has taken a dose of DayQuil yesterday. Discussed croup, offered flu and COVID, patient declined at this time Patient requesting a work note No acute findings noted on exam Patient appropriate for outpatient treatment with close follow-up Discharge instructions reviewed with patient, as well as provided in writing per nursing staff. The instructions also include specific and strict return/GO TO THE ER as well as f/u information. All questions have been answered, and the patient deny any further questions with discharge and discharge plan. Some parts of this dictation were generated by voice recognition software and may contain typographical and/or grammatical inaccuracies. Differential Diagnosis Differential diagnosis: Likely upper respiratory infection, otitis media, sinusitis, viral infection, bronchitis and influenza Critical Care Time Critical Care Time Critical Care Time: No Discharge Plan Discharge Clinical Impression: Cough, Upper respiratory infection, viral Patient Disposition: Home Condition: Stable Instructions: Antibiotic Form, Upper Respiratory Infection (DC) Additional Instructions: Your symptoms are likely due to a viral illness, which is not treated with antibiotics. Typically viral infections last 7-10 days, can linger for couple of weeks. It is very important to treat your symptoms. Drink plenty of water, Gatorade, Pedialyte, ice pops or Jell-O. -Alternate Tylenol and Motrin per package directions for fever or pain. You can alternate every 4 hours -Antihistamine medication such as Zyrtec/Claritin/Marie during the day can help improve symptoms. -doing daily nasal irrigations can help relieve pressure your sinuses. Things like a Neti pot -Use Flonase twice a day for 5 days then daily to help reduce the inflammation and dry up your sinuses. -You can also use Mucinex. Be sure to drink plenty of water with this medication at least 8 ounces with every dose and it is important to drink 8 to 10 glasses of water per day. Water is a natural decongestant -Eat and drink things that are easy to swallow, like tea or soup, or popsicles. -Oral rinses such as: Salt water gargles and/or may use topical anesthetic (eg. Chloraseptic spray) or lozenges to relieve dryness or throat pain). -Frequent hand washing or hand film numberer is one of the best ways to prevent spread of infection. -Using a vaporizer or humidifier at night will also help thin secretions and help with coughing up phlegm. -Follow up with primary care provider in 7-10 days if condition is not improving - For new or worsening symptoms go directly to the nearest ER Patient Language: [place] Citizen Prescriptions: No Action norethindrone ac-eth estradiol 1-20 mg-mcg tablet 1 tablet PO DAILY Follow-up/Referrals: Candelario Reaves MD [Physician] - PHYSICIAN,DYEING MACHINE TENDER [Primary Care Provider] - Stand Alone Forms: Work/School Release IP Time of Disposition: 09:41
[2025-03-01 09:32] VITALS: BP 114/75; PULSE 84; RESP 18; TEMP 36.7; O2SAT 100
== END 2025-03-01 09:42 | disposition home or self-care (01) ==
PROVIDERS: Emergency Provider Nurse Practitioner
DX: R05.9 Cough, unspecified (principal); J06.9 Acute upper respiratory infection, unspecified
CPT/HCPCS: 99211; G0463